=== PATIENT | female | born 1975 | race Caucasian/White ===

== ENCOUNTER 2018-07-24 22:23 | Emergency (ER) | payer OTHER ==
[2018-07-24 22:28] VITALS: RESP 18
[2018-07-24] MEDS ORDERED: ACETAMINOPHEN TAB 500 MG TAB PO STA (23:04)
[2018-07-24] MEDS ORDERED: IBUPROFEN 600 MG TAB PO STA (23:04)
--- NOTE | 2018-07-24 23:11 | ED ---
General Adult HPI - General Chief complaint: ENT Stated complaint: Throat/neck/back pain Time Seen by Provider: 07/24/18 22:44 Source: patient, RN notes reviewed Mode of arrival: ambulatory Limitations: no limitations - History of Present Illness Initial comments: Patient is a pleasant 42-year-old female presenting to the emergency department with fever chills and sore throat. Onset of symptoms was morning. Patient had minimal dry throat last night. Last medication was around 3 PM. Patient states her throat hurts. Patient has some nasal congestion. Patient states her ears ache. Patient also states she is having some minimal suprapubic discomfort and burning with urination. Symptoms have progressively worsened throughout the day. Patient does have fever or chills and myalgias. - Related Data Home Medications Medication Instructions Recorded Confirmed ALPRAZolam [Xanax] 0.5 mg PO DAILY PRN 07/24/18 07/24/18 Cholecalciferol (Vitamin D3) 4,000 unit PO DAILY 07/24/18 07/24/18 [Vitamin D3] Hydrochlorothiazide [Hydrodiuril] 25 mg PO DAILY 07/24/18 07/24/18 Lisinopril [Prinivil] 5 mg PO DAILY 07/24/18 07/24/18 Lovastatin [Mevacor] 10 mg PO DAILY 07/24/18 07/24/18 Multivitamins, Thera [Multivitamin 1 tab PO DAILY 07/24/18 07/24/18 (formulary)] Phentermine HCl [Adipex-P] 37.5 mg PO DAILY 07/24/18 07/24/18 Previous Rx's Medication Instructions Recorded Azithromycin [Zithromax Z-pack] 250 mg PO DIRECTED #6 tab 07/24/18 Ibuprofen [Motrin] 600 mg PO Q6HR PRN #20 tab 07/24/18 Allergies Allergy/AdvReac Type Severity Reaction Status Date / Time No Known Allergies Allergy Verified 07/24/18 22:47 Review of Systems ROS Statement: Those systems with pertinent positive or pertinent negative responses have been documented in the HPI. ROS Other: All systems not noted in ROS Statement are negative. Constitutional: Reports: fever, chills Eyes: Denies: eye pain ENT: Reports: ear pain, throat pain Respiratory: Denies: cough, dyspnea Cardiovascular: Denies: chest pain Endocrine: Reports: fatigue Gastrointestinal: Reports: as per HPI Genitourinary: Reports: dysuria Musculoskeletal: Denies: arthralgia Skin: Denies: rash Neurological: Denies: weakness Past Medical History Past Medical History: Renal Disease History of Any Multi-Drug Resistant Organisms: None Reported Past Surgical History: Ablation, Section Past Psychological History: No Psychological Hx Reported Smoking Status: Never smoker Past Alcohol Use History: None Reported Past Drug Use History: None Reported General Exam Limitations: no limitations General appearance: alert, in no apparent distress Head exam: Present: normocephalic Eye exam: Present: normal appearance ENT exam: Present: TM's normal bilaterally, other (Mild pharyngeal erythema. No tenderness over the sinuses.) Neck exam: Present: normal inspection. Absent: meningismus Respiratory exam: Present: normal lung sounds bilaterally Cardiovascular Exam: Present: regular rate, normal rhythm GI/Abdominal exam: Present: soft, tenderness (Minimal suprapubic tenderness). Absent: distended, guarding, rebound, rigid Extremities exam: Present: normal inspection Neurological exam: Present: alert Psychiatric exam: Present: normal affect, normal mood Skin exam: Present: normal color Course Vital Signs 07/24/18 22:25 Temperature 99.9 F H Pulse Rate 108 H Respiratory 18 Rate Blood Pressure 119/76 O2 Sat by Pulse 97 Oximetry Medical Decision Making - Medical Decision Making Patient reevaluated and updated. Patient is concern regarding sinus congestion and will be placed on antibiotics for sinusitis. - Lab Data Lab Results 07/24/18 07/24/18 07/24/18 Range/Units 23:14 23:14 23:14 Urine Color Colorless Urine Appearance Clear (Clear) Urine pH 8.0 (5.0-8.0) Ur Specific [place] 1.004 (1.001-1.035) Urine Protein Negative (Negative) Urine Glucose (UA) Negative (Negative) Urine Ketones Negative (Negative) Urine Blood Trace H (Negative) Urine Nitrite Negative (Negative) Urine Bilirubin Negative (Negative) Urine Urobilinogen <2.0 (<2.0) mg/dL Ur Leukocyte Esterase Negative (Negative) Urine RBC 1 (0-5) /hpf Urine WBC <1 (0-5) /hpf Ur Squamous Epith Cells 1 (0-4) /hpf Influenza Type A RNA Not Detected (Not Detectd) Influenza Type B (PCR) Not Detected (Not Detectd) Group A Strep Rapid Negative (Negative) Disposition Clinical Impression: Sinusitis, Pharyngitis Disposition: HOME SELF-CARE Condition: Stable Instructions (If sedation given, give patient instructions): Pharyngitis (ED), Sinusitis (ED) Additional Instructions: Continue Tylenol and Motrin as needed. Please follow-up with primary care physician in the next couple days for recheck. Return for difficulty breathing, unable to swallow, worsening symptoms or other concerns. Prescriptions: Ibuprofen [Motrin] 600 mg PO Q6HR PRN #20 tab PRN Reason: Pain Azithromycin [Zithromax Z-pack] 250 mg PO DIRECTED #6 tab Is patient prescribed a controlled substance at d/c from ED?: No Referrals: Addy Ghotra MD [Primary Care Provider] - 1-2 days Time of Disposition: 23:53
[2018-07-24 23:25] LABS: Appearance,Urine Clear (Clear); Bilirubin,Urine Negative (Negative); Blood,Urine Trace (Negative); Color,Urine Colorless; Glucose,Urine (UA) Negative (Negative); Ketones,Urine Negative (Negative); Leukocyte Esterase,Urine Negative (Negative); Nitrite,Urine Negative (Negative); Protein,Urine Negative (Negative); RBC,Urine 1 /hpf (0-5); Specific Gravity,Urine 1.004 (1.001-1.035); Squamous Epithelial Cell,Urine 1 /hpf (0-4); Urobilinogen,Urine <2.0 mg/dL (<2.0); WBC,Urine <1 /hpf (0-5)
[2018-07-25 00:04] VITALS: BP 138/78; PULSE 98; TEMP 98.9
== END 2018-07-25 00:04 | disposition home or self-care (01) ==
LOC: EC 22:23
DX: J32.9 Chronic sinusitis, unspecified (principal); R30.0 Dysuria; Z79.899 Other long term (current) drug therapy
CPT/HCPCS: 81001; 87081; 87086; 87430; 87502; 99283

== ENCOUNTER → 2018-12-12 | Outpatient (CLI) | payer OTHER ==
[2018-12-12 15:27] VITALS: BP 109/76; PULSE 77; RESP 16; TEMP 98; BMI 29.8
--- NOTE | 2018-12-12 16:01 | P.GSHP ---
History of Present Illness H&P Date: 12/12/18 Chief Complaint: right breast pain Sue is a 43-year-old white female who presents with a complaint of right breast pain. The pain has been persistent for approximately a year and a half. She initially had a bilateral mammogram which resulted in an ultrasound of the left breast which revealed an area for which biopsy was recommended and this was benign. No specific lesion was identified in the right breast. Her most recent bilateral mammogram was in September of 2018. Additional views of the right breast was recommended. These were performed [id number]. This revealed nodular density right breast less conspicuous 6 month follow-up recommended. This was a BIRADS 3 probable benign finding and short interval follow-up was recommended. The discomfort in the right breast has not stopped. The patient describes it as diffuse to the breast. At the time of her menstrual cycle it is recommended needle behind the nipple causing pain for several days. The pain is described as throbbing in nature. It is exacerbated by palpation. The patient did have a history of, at 9 years of age, and she states that her breast were developed at that time. She was shooting a [place] and arrow and the strings snapped and hit her breast. At that time she did not have any hematoma in the breast and it did not turn black and blue. She has had no other history of, to either breast. She has no history of any infections in the breast. She does state that the right breast has had persistent nipple discharge since her pregnancies. The discharge is milky or clear in nature and is not bloody. This has been going on for approximately 16 years. The left breast did have some di scharge for several years after her however this stopped. She drinks 1 1/2 coffee/day, she has cut down from up to 5 cups/day. She used to smoke 1PPD for 17 years and quite several years ago. She is exposed to second hand smoke. She does not eat chocolate regularly. She does not take any hormones. She does not use control pills. Family history: 1. maternal grandmother: breast cancer 2. maternal aunt breast cancer 3. maternal cousin: breast cancer Hormonal history: Menarche:13 [place], breast fed: no, age at first : 20 uterine ablation at 38 done for heavy bleeding, endometriosis no period since than BCP: shot 1 time at 21 hormones: none Surgical history: 1. Uterine ablation 2. D&C 3. 4. tubal-ligation Medical History: 1. 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 Endometriosis in the past 3. Kidney disease with high protein in the urine Social History: smoke: stopped 3 years ago alcohol: none drugs: none - Constitutional Constitutional: Denies chills, Denies fever - EENT Eyes: denies blurred vision, denies pain Ears: deny: decreased hearing, tinnitus Ears, nose, mouth and throat: Denies headache, Denies sore throat - Breasts Breasts: bilateral: as per HPI - Cardiovascular Cardiovascular: Reports high blood pressure - Respiratory Comment: former smoker Respiratory: Denies cough, Denies 7 - Gastrointestinal Gastrointestinal: Denies abdominal pain, Denies diarrhea, Denies nausea, Denies vomiting - Genitourinary (Female) Comment: Seen in the urine on certain as to the etiology, this is improved since the patient has been started on blood pressure medication - Menstruation Comment: Uterine ablation, no period since approximately 38, history of endometriosis - Musculoskeletal Comment: none - Integumentary Integumentary: Denies pruritus, Denies rash - Neurological Neurological: Denies numbness, Denies weakness - Psychiatric Psychiatric: Reports anxiety, Reports depression - Endocrine Comment: hypothyroid - Hematologic/Lymphatic Comment: none - Allergic/Immunologic Comment: none Past Medical History Past Medical History: Renal Disease History of Any Multi-Drug Resistant Organisms: None Reported Past Surgical History: Ablation, Section Past Psychological History: No Psychological Hx Reported Smoking Status: Never smoker Past Alcohol Use History: None Reported Past Drug Use History: None Reported Medications and Allergies Home Medications Medication Instructions Recorded Confirmed Type ALPRAZolam [Xanax] 0.5 mg PO DAILY PRN 07/24/18 07/24/18 History Cholecalciferol (Vitamin D3) 4,000 unit PO DAILY 07/24/18 07/24/18 History [Vitamin D3] Hydrochlorothiazide [Hydrodiuril] 25 mg PO DAILY 07/24/18 07/24/18 History Lisinopril [Prinivil] 5 mg PO DAILY 07/24/18 07/24/18 History Lovastatin [Mevacor] 10 mg PO DAILY 07/24/18 07/24/18 History Multivitamins, Thera [Multivitamin 1 tab PO DAILY 07/24/18 07/24/18 History (formulary)] Omeprazole 20 mg PO DAILY 12/12/18 12/12/18 History Allergies Allergy/AdvReac Type Severity Reaction Status Date / Time No Known Allergies Allergy Verified 12/12/18 15:27 Surgical - Exam Vital Signs Temp Pulse Resp BP Pulse Ox 98.0 F 77 16 109/76 98 12/12/18 15:15 12/12/18 15:15 12/12/18 15:15 12/12/18 15:15 12/12/18 15:15 BMI 29.8 - General well developed, well nourished, no distress - Eyes normal ocular movement - ENT no hearing loss, no congestion - Neck no masses, trachea midline - Respiratory normal respiratory effort, clear to auscultation - Cardiovascular Rhythm: regular Heart Sounds: normal: S1, S2 - Abdomen Abdomen: soft, non tender, no guarding, no rigid, no rebound - Integumentary normal turgor - Neurologic no disoriented, no combative - Musculoskeletal normal gait, normal posture - Psychiatric oriented to time, oriented to person, oriented to place, speech is normal, memory intact breast exam: right breast: Multi-positional exam fibrocystic breast changes, no dominant masses or nodules of concern, there is increased parenchyma at the 12 o'clock position which appears to be breast tissue, nipple is inverted but does come out Right axilla: No adenopathy of concern Left breast: Multi-positional exam fibrocystic breast changes, no dominant masses or nodules of concern Left axilla: No adenopathy of concern The right breast is larger than the left breast Results Mammogram and ultrasound results reviewed Assessment and Plan Assessment: Impression: 1. Right breast pain 2. Remote history of trauma to right breast 3. Asymmetry of right breast larger than left breast 4. Right nipple inverted left nipple erect 5. Family history of breast cancer 6. Anxiety 7. Uterine ablation with no longer having periods/endometriosis in the past 8. Hypertension/renal disease 9. Former smoker I believe the breast pain is most likely multifactorial. It appears to be cyclical in nature and therefore is probably some hormone dependent. The reason for the pain being greater than the right side may be related to the fact that she has a remote history of trauma to that breast. Additionally she has asymmetry of the breast with the right breast being larger than the left breast. She also has nipple discharge on the right this again may be related to ductal ectasia or prior history of trauma to that side at today's examination did not elicit any discharge. The patient drinks minimal caffeine she does not smoke and is not exposed to large quantities of secondhand smoke. She does not eat large quantities of chocolate. I'm going to provide her with a book on breast pain and suggest that she stop caffeine intake and has [place] oil. Plan: 1. [place] oil 2. Stop caffeine 3. Limited exposure to secondhand smoke 4. Nonsteroidal anti-inflammatories as needed for breast pain 5. Bilateral mammogram in February with physician exam at that time CC: Dr. Ghotra
== END ==
LOC: WWCWWP 15:03
PROVIDERS: ATTEND Surgery
DX: Z53.9 Procedure and treatment not carried out, unspecified reason (principal)

== ENCOUNTER 2019-05-05 22:02 | Emergency (ER) | payer OTHER ==
[2019-05-05 22:17] VITALS: TEMP 98
--- NOTE | 2019-05-05 22:45 | XR ---
EXAMINATION TYPE: XR chest 2V DATE OF EXAM: 05/05/2019 COMPARISON: 05/04/2016 HISTORY: Short of breath TECHNIQUE: FINDINGS: Heart and mediastinum are normal. Lungs are clear. Diaphragm is normal. Bony thorax appears normal. IMPRESSION: Normal chest. No change.
[2019-05-06] MEDS ORDERED: OSELTAMIVIR 75 MG CAP PO STA (00:33)
--- NOTE | 2019-05-06 00:37 | ED ---
URI HPI - General Chief Complaint: Upper Respiratory Infection Stated Complaint: Weakness,Cough Time Seen by Provider: 05/06/19 00:20 Source: patient, RN notes reviewed Mode of arrival: ambulatory Limitations: no limitations - History of Present Illness Initial Comments: This a 43-year-old female with a history of renal disease who is a nonsmoker who states she had the onset 2 and 3 days ago of fevers chills cough rhinorrhea sore throat to his body aches and is generally not feeling well. He came in today because of that she's missed last couple days work. MD Complaint: fever, cough, sore throat, rhinorrhea, nasal congestion - Related Data Home Medications Medication Instructions Recorded Confirmed ALPRAZolam [Xanax] 0.5 mg PO DAILY PRN 07/24/18 07/24/18 Cholecalciferol (Vitamin D3) 4,000 unit PO DAILY 07/24/18 12/12/18 [Vitamin D3] Hydrochlorothiazide [Hydrodiuril] 25 mg PO DAILY 07/24/18 12/12/18 Lisinopril [Prinivil] 5 mg PO DAILY 07/24/18 12/12/18 Lovastatin [Mevacor] 10 mg PO DAILY 07/24/18 12/12/18 Multivitamins, Thera [Multivitamin 1 tab PO DAILY 07/24/18 12/12/18 (formulary)] Omeprazole 20 mg PO DAILY 12/12/18 12/12/18 Previous Rx's Medication Instructions Recorded Oseltamivir [Tamiflu] 75 mg PO Q12HR #10 cap 05/06/19 Allergies Allergy/AdvReac Type Severity Reaction Status Date / Time NSAIDS (Non-Steroidal AdvReac due to Verified 05/05/19 22:17 Anti-Inflamma kidney disease Review of Systems ROS Statement: Those systems with pertinent positive or pertinent negative responses have been documented in the HPI. ROS Other: All systems not noted in ROS Statement are negative. Past Medical History Past Medical History: Renal Disease History of Any Multi-Drug Resistant Organisms: None Reported Past Surgical History: Section, Uterine Ablation Past Psychological History: No Psychological Hx Reported Smoking Status: Never smoker Past Alcohol Use History: None Reported Past Drug Use History: None Reported General Exam - General Exam Comments Initial Comments: This is a well-developed well-nourished awake alert oriented 3 female Limitations: no limitations General appearance: alert, in no apparent distress Head exam: Present: atraumatic, normocephalic, normal inspection Eye exam: Present: normal appearance, PERRL, EOMI. Absent: scleral icterus, conjunctival injection, periorbital swelling ENT exam: Present: mucous membranes moist, other (Boggy swollen nasal mucosa with posterior pharyngeal erythema no exudate seen) Neck exam: Present: normal inspection. Absent: tenderness, meningismus, lymphadenopathy Respiratory exam: Present: normal lung sounds bilaterally. Absent: respiratory distress, wheezes, rales, rhonchi, stridor Cardiovascular Exam: Present: regular rate, normal rhythm, normal heart sounds. Absent: systolic murmur, diastolic murmur, rubs, gallop, clicks GI/Abdominal exam: Present: soft, normal bowel sounds. Absent: distended, tenderness, guarding, rebound, rigid Extremities exam: Present: normal inspection, full ROM, normal capillary refill. Absent: tenderness, pedal edema, joint swelling, calf tenderness Back exam: Present: normal inspection Neurological exam: Present: alert, oriented X3, CN II-XII intact Psychiatric exam: Present: normal affect, normal mood Skin exam: Present: warm, dry, intact, normal color. Absent: rash Course Vital Signs 05/05/19 22:13 Temperature 98.0 F Pulse Rate 89 Respiratory 20 Rate Blood Pressure 118/81 O2 Sat by Pulse 100 Oximetry Medical Decision Making - Medical Decision Making I did discuss findings the patient and family member that was present. Patient does have evidence of type a influenza. She will be placed on antivirals she will be given a note for work for tonight and tomorrow night she will perform simple any care with fluids and Tylenol she has problems with ibuprofen due to kidney issues. She will stay away from ibuprofen and NSAIDs. - Lab Data Lab Results 05/05/19 Range/Units 22:20 Influenza Type A RNA Detected H (Not Detectd) Influenza Type B (PCR) Not Detected (Not Detectd) - Radiology Data Radiology results: report reviewed (I did review the imaging and report no acute findings.), image reviewed Disposition Clinical Impression: Influenza, Viral infection Disposition: HOME SELF-CARE Condition: Good Instructions (If sedation given, give patient instructions): Influenza (ED) Additional Instructions: Prescription sent to your [facility] preferred pharmacy Prescriptions: Oseltamivir [Tamiflu] 75 mg PO Q12HR #10 cap Is patient prescribed a controlled substance at d/c from ED?: No Referrals: Addy Ghotra MD [Primary Care Provider] - 1-2 days
[2019-05-06 00:53] VITALS: BP 137/100; PULSE 88; RESP 18
== END 2019-05-06 00:51 | disposition home or self-care (01) ==
LOC: EC 22:02
DX: J11.1 Influenza due to unidentified influenza virus with other respiratory manifestations (principal); B34.9 Viral infection, unspecified; N28.9 Disorder of kidney and ureter, unspecified; Z79.899 Other long term (current) drug therapy; Z88.6 Allergy status to analgesic agent
CPT/HCPCS: 71046; 87502; 99283

== ENCOUNTER 2020-01-24 17:52 | Emergency (ER) | payer OTHER ==
[2020-01-24 17:57] VITALS: TEMP 98.7
--- NOTE | 2020-01-24 18:13 | ED ---
Chest Pain HPI - General Chief Complaint: Chest Pain Stated Complaint: Chest Pain Time Seen by Provider: 01/24/20 18:08 Source: patient, RN notes reviewed, old records reviewed Mode of arrival: wheelchair Limitations: no limitations - History of Present Illness Initial Comments: This is a 44-year-old female DF she presents today for evaluation regards to chest pain. No chest pain substernal some posterior back sometimes her right side. History of anxiety taking anxiety medication with no help again symptoms are episodic but worsening she is not worse when she drinks no worse with exertion maybe worse when she lays down MD Complaint: chest pain -: days(s) Onset: during rest Pain Location: substernal Pain Radiation: none Severity: moderate Severity scale (1-10): 5 Quality: tightness Consistency: constant Improves With: nothing Worsens With: nothing Context: recent illness Anginal Symptoms: nausea Other Symptoms: palpitations Treatments Prior to Arrival: none - Related Data Home Medications Medication Instructions Recorded Confirmed ALPRAZolam [Xanax] 0.5 mg PO DAILY PRN 07/24/18 07/24/18 Cholecalciferol (Vitamin D3) 4,000 unit PO DAILY 07/24/18 12/12/18 [Vitamin D3] Lovastatin [Mevacor] 10 mg PO DAILY 07/24/18 12/12/18 Multivitamins, Thera [Multivitamin 1 tab PO DAILY 07/24/18 12/12/18 (formulary)] hydroCHLOROthiazide [Hydrodiuril] 25 mg PO DAILY 07/24/18 12/12/18 lisinopriL [Prinivil] 5 mg PO DAILY 07/24/18 12/12/18 Omeprazole 20 mg PO DAILY 12/12/18 12/12/18 Previous Rx's Medication Instructions Recorded Oseltamivir [Tamiflu] 75 mg PO Q12HR #10 cap 05/06/19 Allergies Allergy/AdvReac Type Severity Reaction Status Date / Time NSAIDS (Non-Steroidal AdvReac due to Verified 01/24/20 17:57 Anti-Inflamma kidney disease Review of Systems ROS Statement: Those systems with pertinent positive or pertinent negative responses have been documented in the HPI. ROS Other: All systems not noted in ROS Statement are negative. EKG Findings - EKG Comments: EKG Findings:: EKG is sinus on rhythm 81 GA 160 QRS 82 QTC 4:30 Past Medical History Past Medical History: Renal Disease History of Any Multi-Drug Resistant Organisms: None Reported Past Surgical History: Section, Uterine Ablation Past Psychological History: No Psychological Hx Reported Smoking Status: Never smoker Past Alcohol Use History: None Reported Past Drug Use History: None Reported General Exam Limitations: no limitations General appearance: alert, in no apparent distress Head exam: Present: atraumatic, normocephalic, normal inspection Eye exam: Present: normal appearance, PERRL, EOMI. Absent: scleral icterus, conjunctival injection, periorbital swelling ENT exam: Present: normal exam, mucous membranes moist Neck exam: Present: normal inspection. Absent: tenderness, meningismus, lymphadenopathy Respiratory exam: Present: normal lung sounds bilaterally. Absent: respiratory distress, wheezes, rales, rhonchi, stridor Cardiovascular Exam: Present: regular rate, normal rhythm, normal heart sounds. Absent: systolic murmur, diastolic murmur, rubs, gallop, clicks GI/Abdominal exam: Present: soft, normal bowel sounds. Absent: distended, tenderness, guarding, rebound, rigid Extremities exam: Present: normal inspection, full ROM, normal capillary refill. Absent: tenderness, pedal edema, joint swelling, calf tenderness Back exam: Present: normal inspection Neurological exam: Present: alert, oriented X3, CN II-XII intact Psychiatric exam: Present: normal affect, normal mood Skin exam: Present: warm, dry, intact, normal color. Absent: rash Course Vital Signs 01/24/20 17:54 Temperature 98.7 F Pulse Rate 94 Respiratory 18 Rate Blood Pressure 148/106 O2 Sat by Pulse 99 Oximetry - Reevaluation(s) Reevaluation #1: 01/24/20 20:56 Medical record is reviewed Reevaluation #2: 01/24/20 20:56 Patient has episodic recurrent chest pain still here in the ER Reevaluation #3: 01/24/20 20:56 Spoke patient regarding findings, questions answered, okay for discharge Reevaluation #4: Studies CT chest negative for PE Chest Pain MDM - MDM 4 female DF for chest pain. No acute cause for chest pain found here in the ER, patient can be discharged home Disposition Clinical Impression: Chest pain Disposition: HOME SELF-CARE Instructions (If sedation given, give patient instructions): Costochondritis (ED), Chest Pain (ED) Is patient prescribed a controlled substance at d/c from ED?: No Referrals: Addy Ghotra MD [Primary Care Provider] - 1-2 days
--- NOTE | 2020-01-24 18:31 | XR ---
EXAMINATION TYPE: XR chest 2V DATE OF EXAM: 01/24/2020 COMPARISON: 05/05/2019 HISTORY: Chest pain TECHNIQUE: FINDINGS: Heart and mediastinum are normal. Lungs are clear. Diaphragm is normal. Bony thorax appears normal. IMPRESSION: Normal chest. No change.
[2020-01-24 18:52] LABS: ALT 21 U/L (4-34); AST 25 U/L (14-36); African American GFR (CKD) >90 (>60 ml/min/1.73 sqM); Albumin 4.3 g/dL (3.5-5.0); Alkaline Phosphatase 42 U/L (38-126); Anion Gap 7 mmol/L; Blood Urea Nitrogen 10 mg/dL (7-17); Calcium 9.6 mg/dL (8.4-10.2); Carbon Dioxide 26 mmol/L (22-30); Chloride 102 mmol/L (98-107); Creatine Kinase 67 U/L (30-135); Glucose 101 mg/dL (74-99); Lipase 99 U/L (23-300); Magnesium 1.9 mg/dL (1.6-2.3); Non-African American GFR(CKD) >90 (>60 ml/min/1.73 sqM); Potassium 3.6 mmol/L (3.5-5.1); Sodium 135 mmol/L (137-145); Total Bilirubin 0.5 mg/dL (0.2-1.3); Total Protein 6.9 g/dL (6.3-8.2)
[2020-01-24 19:00] LABS: INR 0.9 (<1.2); Partial Thromboplastin Time 23.8 sec (22.0-30.0); Prothrombin Time 9.8 sec (9.0-12.0)
[2020-01-24 19:08] LABS: Basophils % (A) 1 %; Eosinophils # (A) 0.1 k/uL (0-0.7); Eosinophils % (A) 1 %; HCT 47.2 % (34.0-46.0); HGB 15.5 gm/dL (11.4-16.0); Lymphocytes # (A) 1.7 k/uL (1.0-4.8); Lymphocytes % (A) 21 %; MCH 30.4 pg (25.0-35.0); MCHC 32.9 g/dL (31.0-37.0); MCV 92.3 fL (80.0-100.0); Mean Platelet Volume 9.3; Monocytes # (A) 0.4 k/uL (0-1.0); Monocytes % (A) 6 %; Neutrophils # (A) 5.7 k/uL (1.3-7.7); Neutrophils % (A) 70 %; Platelet Count 289 k/uL (150-450); RBC 5.12 m/uL (3.80-5.40); RDW 12.3 % (11.5-15.5); WBC 8.1 k/uL (3.8-10.6)
[2020-01-24] MEDS ORDERED: KETOROLAC 15 MG/ML 1 ML VIAL IVP STA (19:55)
[2020-01-24] MEDS ORDERED: SODIUM CHLORIDE 0.9% 1,000 ML IV STA (19:55)
--- NOTE | 2020-01-24 20:48 | CT ---
EXAMINATION TYPE: CT angio chest DATE OF EXAM: 01/24/2020 COMPARISON: None HISTORY: Chest pain. No known cardiac hx. CT DLP: 339.5 mGycm Automated exposure control for dose reduction was used. CONTRAST: Performed with IV Contrast, patient injected with 100 mL of Isovue 370. There are 3-D post processed images. The lungs are clear of infiltrate. There is no evidence of a pulmonary mass. There is no pleural effu melba or pneumothorax. Heart size is normal. There is no pericardial effusion. There is no mediastinal adenopathy. There are no hilar masses. The bony thorax is intact. There is normal contrast opacification of the pulmonary arteries. There are no filling defects. Thora cic aorta is intact. There is no aneurysm or dissection. IMPRESSION: Normal exam. No evidence of pulmonary embolism.
[2020-01-24 21:20] VITALS: BP 126/102; PULSE 83; RESP 16
== END 2020-01-24 21:20 | disposition home or self-care (01) ==
LOC: EC 17:52
DX: R07.9 Chest pain, unspecified (principal); R11.0 Nausea; R00.2 Palpitations; Z79.899 Other long term (current) drug therapy; Z88.6 Allergy status to analgesic agent
CPT/HCPCS: 36415; 93005; 83880; 80053; 82550; 83690; 83735; 84484; 85025; 85610; 85730; 71046; 71275; 99285; Q9967

== ENCOUNTER 2020-06-06 06:02 | Day surgery (SDC) | payer OTHER ==
[2020-06-03 08:32] VITALS: BMI 30.2
--- NOTE | 2020-06-05 17:46 | P.HPOB ---
History of Present Illness H&P Date: 06/05/20 Chief Complaint: ALON II This is a 44 y.o. 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 Her pap smear on 03/24/2020 showed low grade squamous intraepithelial lesion with + high risk HPV. In light of the ALON II, she has consented to the above procedure. She has no previous history of abnormal pap smears. OB Hx: . History of 1 , 2 vaginal births, and 1 miscarriage. 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 She has no current partner. Had a tubal ligation for control. 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 Review of Systems Constitutional: Denies chills, Denies fever Eyes: denies blurred vision, denies pain Ears, nose, mouth and throat: Denies headache, Denies sore throat Cardiovascular: Denies chest pain, Denies shortness of breath Respiratory: Denies cough Gastrointestinal: Denies abdominal pain, Denies diarrhea, Denies nausea, Denies vomiting Genitourinary: Reports dysmenorrhea, Denies dysuria, Denies hematuria Menstruation: Reports amenorrhea Musculoskeletal: Reports low back pain, Denies myalgias Integumentary: Denies pruritus, Denies rash Neurological: Denies numbness, Denies weakness Psychiatric: Reports anxiety Past Medical History Past Medical History: Hyperlipidemia, Hypertension, Renal Disease, Thyroid Disorder Additional Past Medical History / Comment(s): Hx "elevated protein in urine 10 yrs ago". History of Any Multi-Drug Resistant Organisms: None Reported Past Surgical History: Section, Uterine Ablation Additional Past Surgical History / Comment(s): D&C. Past Anesthesia/Blood Transfusion Reactions: No Reported Reaction Past Psychological History: No Psychological Hx Reported Smoking Status: Never smoker Past Alcohol Use History: Rare Additional Past Alcohol Use History / Comment(s): Quit smoking 2 yrs ago, smoked for 10+ yrs 1PPD. Past Drug Use History: None Reported - Past Family History Mother Family Medical History: No Reported History Medications and Allergies Home Medications Medication Instructions Recorded Confirmed Type ALPRAZolam [Xanax] 0.5 mg PO DAILY PRN 07/24/18 06/06/20 History Cholecalciferol (Vitamin D3) 4,000 unit PO DAILY 07/24/18 06/03/20 History [Vitamin D3] Lovastatin [Mevacor] 10 mg PO DAILY 07/24/18 06/06/20 History Multivitamins, Thera [Multivitamin 1 tab PO DAILY 07/24/18 06/03/20 History (formulary)] hydroCHLOROthiazide [Hydrodiuril] 25 mg PO DAILY 07/24/18 06/06/20 History lisinopriL [Prinivil] 5 mg PO HS 07/24/18 06/06/20 History RX: Levothyroxine Sodium 125 mcg PO QAM 06/03/20 06/06/20 History Allergies Allergy/AdvReac Type Severity Reaction Status Date / Time NSAIDS (Non-Steroidal AdvReac due to Verified 06/06/20 06:23 Anti-Inflamma kidney disease Exam Osteopathic Statement: *. No significant issues noted on an osteopathic structural exam other than those noted in the History and Physical/Consult. HEENT: within normal limits Heart: regular rate and rhythm Lungs: clear to auscultation bilaterally Abdomen: soft, non-tender Pelvic: uterus anteverted, non-tender, no adnexal masses or tenderness Extremities: neg. Laura's. Assessment and Plan (1) ALON II (cervical intraepithelial neoplasia II) Current Visit: No Status: Acute Code(s): N87.1 - MODERATE CERVICAL DYSPLASIA SNOMED Code(s): 453578460 Plan: Proceed with colposcopy with loop electrocautery excision procedure. I have discussed the risks, benefits, and alternative therapies for the above- mentioned procedure and for both sedation/anesthesia as well as necessary blood products administration, if indicated, as they pertain to this patient. The patient has indicated her understanding and acceptance of the risks and procedures discussed.
[~2020-06-06 06:02] MED LIST: DEXAMETHASONE SOD PHOSPHATE 4 MG/ML 1 ML VIAL IV ONE; HYDROmorphone 0.5 MG/0.5 ML SYRINGE IVP PRN; LACTATED RINGERS 1,000 ML IV SCH; ONDANSETRON 4 MG/2 ML VIAL IVP ONE; Pre Op ABX Message 1 EACH MISC MISCELLANE ONE
[2020-06-06] MEDS ORDERED: LIDOCAINE 1% (10MG/ML) FOR IV START INTRADERMA ONE (06:38)
[2020-06-06] MEDS ORDERED: MIDAZOLAM 2 MG/2 ML VIAL IV ONE (06:50)
[2020-06-06] MEDS ORDERED: LIDOCAINE 1% INJ 10MG/ML (20 ML MDV) ONE (07:09)
[2020-06-06] MEDS ORDERED: fentaNYL (PF) 50 MCG/ML 2 ML AMP ONE (07:09)
[2020-06-06] MEDS ORDERED: PROPOFOL 10 MG/ML 20 ML VIAL IV ONE (07:09)
[2020-06-06] MEDS ORDERED: MIDAZOLAM 2 MG/2 ML VIAL ONE (07:09)
[2020-06-06] MEDS ORDERED: IODINE/POTASS IOD (LUGOLS) BOTTLE TOPICAL ONE (07:36)
[2020-06-06] MEDS ORDERED: FERRIC SUBSULFATE (MONSELS) JAR TOPICAL ONE ×2 (07:36→07:47)
[2020-06-06] MEDS ORDERED: ACETIC ACID 15 DROPS/ML DROPS MISCELLANE ONE (07:36)
[2020-06-06] MEDS ORDERED: BUPIVACAINE (PF) 0.5% 30 ML VIAL MISCELLANE ONE (07:41)
[2020-06-06] MEDS ORDERED: LIDOCAINE 1%-EPI 1:100,000 20 ML VIAL SUBMUCOSAL ONE (07:41)
--- NOTE | 2020-06-06 07:50 | P.OP ---
Date of Procedure: 06/06/20 Preoperative Diagnosis: ALON-2 Postoperative Diagnosis: Cervical dysplasia pending pathology Procedure(s) Performed: Colposcopy with loop electrocautery excision procedure Anesthesia: other (Mask general) Surgeon: Mikaela Doherty Estimated Blood Loss (ml): 10 Condition: stable Disposition: same day Indications for Procedure: This is a 44 y.o. 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 Her pap smear on 03/24/2020 showed low grade squamous intraepithelial lesion with + high risk HPV. In light of the ALON II, she has consented to the above procedure. She has no previous history of abnormal pap smears. Operative Findings: Cervix is completely visualized. On colposcopy, acetowhite and Lugol white areas are seen at the 12:00 border. There is some mosaicism seen at 10 to 12:00 area. Description of Procedure: The patient is taken to the operating room where she is placed in the dorsal lithotomy position. She was prepped and draped in the normal sterile fashion. Her bladder is drained with a catheter. A coated bivalve speculum was placed in the patient's vagina. The cervix is completely visualized. Cervix is then viewed with a colposcope with a blue light. Cervix is swabbed with 5% acetic acid solution. The above-noted findings are made. Next the cervix was swabbed with Lugol solution. The above-noted findings are made. Next the cervix is circumferentially injected with a 50-50 mixture of 1% lidocaine with epinephrine and half percent Marcaine. Approximately 7 mL were injected using a spinal needle circumferentially around the cervix. Next a large loop was used with 35 W of cutting power to swipe from left to right to remove the entire transition zone. Next a ball-tipped cautery was used to cauterize the bed left behind. The specimen was labeled at the 12 o'clock position with a stitch. Monsel solution was applied to the bed left behind. Hemostasis was noted. All instruments are removed from the vagina. All sponge and needle counts are correct. The patient then taken to recovery room in stable condition.
[2020-06-06 08:29] VITALS: TEMP 97.3
[2020-06-06 08:31] VITALS: RESP 16
[2020-06-06] MEDS ORDERED: IBUPROFEN 200 MG TAB PO ONE (09:09)
[2020-06-06 09:27] VITALS: BP 122/83; PULSE 79
== END 2020-06-06 10:01 | disposition home or self-care (01) ==
LOC: OR 06:02
PROVIDERS: ATTEND Obstetrics & Gynecology
DX: N87.1 Moderate cervical dysplasia (principal); E78.5 Hyperlipidemia, unspecified; E07.9 Disorder of thyroid, unspecified; I10 Essential (primary) hypertension; N28.9 Disorder of kidney and ureter, unspecified; F41.9 Anxiety disorder, unspecified; Z79.890 Hormone replacement therapy; Z79.899 Other long term (current) drug therapy; Z87.891 Personal history of nicotine dependence
CPT/HCPCS: 57460; 81025; 88342; 88307; J2250; J1100; J2405; J2001; J3010; J2704

== ENCOUNTER 2021-03-20 07:30 | Inpatient (IN) | payer OTHER ==
[2021-04-14 12:11] VITALS: BMI 33.0
--- NOTE | 2021-04-19 16:36 | P.HPOB ---
History of Present Illness H&P Date: 04/19/21 Chief Complaint: Pelvic pain, ASCUS This is a 45 y.o. female, 4, para 3, who presents for total abdominal hysterectomy with bilateral salpingectomy, possible oophorectomy due to persistent pelvic pain despite endometrial ablation. She has crampy pelvic pain that comes every 2-3 weeks and lasts for 5 days going on for about a year now. The pain is in her lower abdomen and radiates to her lower back and is associated with breast tenderness. In addition, she did have a LEEP procedure done in 05/2020 for HGSIL and it showed no residual. Her last pap smear in 01/2021 showed ASCUS with negative high risk HPV. The patient would like definitive surgical treatment for her pain and has requested hysterectomy. We will only remove ovaries if they appear severely diseased. She had a pelvic ultrasound on 03/17/2021 that showed uterus measuring 6.3 x 4.4 x 3.4 cm with an endometrial thickness of 15 mm and small corpus luteum cysts on both ovaries. OB Hx: . History of 1 and 2VBACs, 1 miscarriage. 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 No other history of STDs. Has had a tubal ligation. 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 Review of Systems Constitutional: Denies chills, Denies fever Eyes: denies blurred vision, denies pain Ears, nose, mouth and throat: Denies headache, Denies sore throat Cardiovascular: Denies chest pain, Denies shortness of breath Respiratory: Denies cough Gastrointestinal: Denies abdominal pain, Denies diarrhea, Denies nausea, Denies vomiting Genitourinary: Reports dysmenorrhea, Reports pelvic pain Menstruation: Reports amenorrhea (ablation) Musculoskeletal: Reports low back pain Integumentary: Denies pruritus, Denies rash Neurological: Denies numbness, Denies weakness Psychiatric: Reports anxiety Endocrine: Reports fatigue Past Medical History Past Medical History: GERD/Reflux, Hyperlipidemia, Hypertension, Renal Disease, Thyroid Disorder Additional Past Medical History / Comment(s): Hx "elevated protein in urine 2009, History of Any Multi-Drug Resistant Organisms: None Reported Past Surgical History: Section, Uterine Ablation Additional Past Surgical History / Comment(s): D&C. LEEP/Colposcopy 05/2020. Past Anesthesia/Blood Transfusion Reactions: No Reported Reaction Past Psychological History: Anxiety Smoking Status: Former smoker Past Alcohol Use History: Occasional Past Drug Use History: None Reported - Past Family History Mother Family Medical History: No Reported History Father Family Medical History: Diabetes Mellitus, Hyperlipidemia Medications and Allergies Home Medications Medication Instructions Recorded Confirmed Type ALPRAZolam [Xanax] 0.5 mg PO DAILY PRN 07/24/18 04/20/21 History Cholecalciferol (Vitamin D3) 4,000 unit PO DAILY 07/24/18 04/20/21 History [Vitamin D3] Lovastatin [Mevacor] 10 mg PO DAILY 07/24/18 04/20/21 History Multivitamins, Thera [Multivitamin 1 tab PO DAILY 07/24/18 04/20/21 History (formulary)] hydroCHLOROthiazide [Hydrodiuril] 25 mg PO DAILY 07/24/18 04/20/21 History lisinopriL [Prinivil] 5 mg PO 1900 07/24/18 04/20/21 History Levothyroxine Sodium 125 mcg PO QAM 06/03/20 04/20/21 History Evening [place] Oil 1,000 mg PO DAILY 04/14/21 04/20/21 History Allergies Allergy/AdvReac Type Severity Reaction Status Date / Time NSAIDS (Non-Steroidal AdvReac due to Verified 04/20/21 06:39 Anti-Inflamma kidney disease Exam Osteopathic Statement: *. No significant issues noted on an osteopathic structural exam other than those noted in the History and Physical/Consult. HEENT: within normal limits Heart: regular rate and rhythm Lungs: clear to auscultation bilaterally Abdomen: soft, non-tender Uterus: small, anteverted, mildly tender, no adnexal masses but mildly tender bilaterally Extremities: neg. Laura's Assessment and Plan (1) Pelvic pain Current Visit: No Status: Acute Code(s): R10.2 - PELVIC AND PERINEAL PAIN SNOMED Code(s): 15904861 (2) ASCUS favor benign Current Visit: No Status: Acute Code(s): PYH8338 - SNOMED Code(s): 845002809 Plan: Proceed with total abdominal hysterectomy with bilateral salpingectomy, possible oophorectomy. I have discussed the risks, benefits, and alternative therapies for the above- mentioned procedure and for both sedation/anesthesia as well as necessary blood products administration, if indicated, as they pertain to this patient. The patient has indicated her understanding and acceptance of the risks and procedures discussed.
[2021-04-20] MEDS ORDERED: DEXAMETHASONE SOD PHOSPHATE 4 MG/ML 1 ML VIAL IV ONE (06:04)
[2021-04-20] MEDS ORDERED: ONDANSETRON 4 MG/2 ML VIAL IVP ONE (06:04)
[2021-04-20] MEDS ORDERED: MIDAZOLAM 2 MG/2 ML VIAL IV PRN (06:04)
[2021-04-20] MEDS ORDERED: LIDOCAINE 1% (10MG/ML) FOR IV START INTRADERMA ONE (06:56)
[2021-04-20] MEDS: LACTATED RINGERS 1,000 ML IV SCH ×2 (06:57→23:44)
[2021-04-20] MEDS ORDERED: MIDAZOLAM 2 MG/2 ML VIAL IVP ONE (07:11)
[2021-04-20] MEDS ORDERED: NEOSTIGMINE 1 MG/ML 10 ML VIAL ONE (07:55)
[2021-04-20] MEDS ORDERED: PROPOFOL 10 MG/ML 20 ML VIAL IV ONE (07:55)
[2021-04-20] MEDS ORDERED: KETOROLAC 15 MG/ML 1 ML VIAL ONE (07:55)
[2021-04-20] MEDS ORDERED: LIDOCAINE 1% INJ 10MG/ML (20 ML MDV) ONE (07:55)
[2021-04-20] MEDS ORDERED: HYDROmorphone (PF) 1 MG/ML ONE (07:55)
[2021-04-20] MEDS ORDERED: GLYCOPYRROLATE 0.2 MG/ML 2 ML VIAL ONE (07:55)
[2021-04-20] MEDS ORDERED: fentaNYL (PF) 50 MCG/ML 2 ML AMP ONE (07:55)
[2021-04-20] MEDS ORDERED: MIDAZOLAM 2 MG/2 ML VIAL ONE (07:55)
[2021-04-20] MEDS ORDERED: MORPHINE SULFATE (PF) 0.3 MG/0.3 ML SYR ONE (07:55)
[2021-04-20] MEDS ORDERED: ROCURONIUM 10 MG/ML (5 ML VIAL) IV ONE (07:55)
[2021-04-20] MEDS ORDERED: SUCCINYLCHOLINE CHLORIDE 100 MG/5 ML SYR IV ONE (07:55)
--- NOTE | 2021-04-20 08:04 | P.ANPRN ---
Procedure Note - Anesthesia - Epidural/Spinal Spinal Date of Procedure: 04/20/21 Procedure Start Time: 06:52 Procedure Stop Time: 07:02 Location of Patient: PreOp Indication: Analgesia, Requested by Surgeon Sedation Type: Sedate with meaningful contact maintained Preparation: Sterile Prep Position: Sitting Needle Guage: 25 Injectate: Other Narrative: Duramorph 0.3 mg, plus Fentanyl 15 mcg Blood Aspirated: No Pain Paresthesia on Injection Noted: No Events: Uneventful and Well Tolerated
[2021-04-20] MEDS ORDERED: LACTATED RINGERS 1,000 ML IV ONE (08:40)
--- NOTE | 2021-04-20 09:14 | P.OP ---
Date of Procedure: 04/20/21 Preoperative Diagnosis: Pelvic pain Atypical squamous cells of undetermined significance on Pap Postoperative Diagnosis: Same Procedure(s) Performed: Total abdominal hysterectomy with bilateral salpingectomy Anesthesia: GETA, spinal (Duramorph) Surgeon: Mikaela Doherty Press Breaker #1: Amador Infante Estimated Blood Loss (ml): 75 Pathology: other (Uterus with cervix, bilateral fallopian tubes) Condition: stable Disposition: floor Indications for Procedure: This is a 45 y.o. female, 4, para 3, who presents for total abdominal hysterectomy with bilateral salpingectomy, possible oophorectomy due to persistent pelvic pain despite endometrial ablation. She has crampy pelvic pain that comes every 2-3 weeks and lasts for 5 days going on for about a year now. The pain is in her lower abdomen and radiates to her lower back and is associated with breast tenderness. In addition, she did have a LEEP procedure done in 05/2020 for HGSIL and it showed no residual. Her last pap smear in 01/2021 showed ASCUS with negative high risk HPV. The patient would like definitive surgical treatment for her pain and has requested hysterectomy. We will only remove ovaries if they appear severely diseased. She had a pelvic ultrasound on 03/17/2021 that showed uterus measuring 6.3 x 4.4 x 3.4 cm with an endometrial thickness of 15 mm and small corpus luteum cysts on both ovaries. Operative Findings: Uterus is small. Evidence of bilateral tubal ligation as noted on bilateral tubes. There was some adhesion of the left fallopian tube to the anterior abdominal wall. There was also adhesions of omentum to the anterior abdominal wall. Both ovaries did have small hemorrhagic cysts noted. Description of Procedure: The patient is taken to the operating room where she is placed in the dorsal supine position. She is prepped and draped in the normal sterile fashion including Espinosa catheter insertion and vaginal prep. A Pfannenstiel skin incision is made through the previous laparotomy scar with a scalpel. A second knife was used to carry the incision down to the underlying layer of fascia. The fascia was nicked in the midline with a scalpel and then extended laterally bilaterally with Terrell scissors. The superior aspect of the fascial incision was grasped with Lazaro clamps, elevated off the underlying rectus muscle in the midline and then cut with Terrell scissors. The inferior aspect of the fascial incision was grasped with Lazaro clamps, elevated off the underlying rectus muscle in the midline and then cut with Terrell scissors. Omentum was noted to be adherent to the anterior abdominal wall. The peritoneum was entered while taking the muscle down off of the fascia. The peritoneum is extended superiorly and in fairly with Metzenbaum scissors with good visualization of underlying structures. There are some omental adhesions that are taken down with Bovie cautery. Next the [place] retractor is placed in the bladder blade was inserted. The bowels were packed with a 3 yard laparotomy sponge. Next the uterus is brought up incision and the corneal regions are grasped with Estella clamps on both sides. Next the fallopian tube on the left side is released from the anterior abdominal wall with Metzenbaum scissors and then is brought up to the incision and the mesosalpinx is clamped with a Jenni clamp. This is cut with Terrell scissors and then sutured with 0 Vicryl suture in Jenni transfixion stitch. The remaining mesosalpinx is also clamped with a Jenni clamp, cut with Terrell scissors, and sutured with 0 Vicryl suture in Jenni transfixion stitches. Next the uterine ovarian ligament is clamped with a Jenni clamp, cut with Terrell scissors, and then sutured with 0 Vicryl suture in Jenni transfixion stitch. The same procedure is carried out on the right side. The uterine arteries are then clamped with Jenni clamp on either side. The vesicouterine peritoneum was sharply dissected away from the bladder with Metzenbaum scissors and pushed inferiorly. The uterine arteries are then cut with Terrell scissors, and sutured with 0 Vicryl suture in Jenni transfixion stitches. Next the cardinal ligaments were clamped on either side with Jenni clamp, cut with Terrell scissors, and sutured with 0 Vicryl suture in Jenni transfixion stitches. The uterosacral ligaments are clamped on either side with Jenni clamps, cut with Terrell scissors, and sutured with 0 Vicryl suture in Jenni transfixion stitches on either side. The edges of the vaginal cuff were clamped on either side with a Jenni clamp, cut with Terrell scissors, and sutured with 0 Vicryl suture in Hean ey transfixion stitches and held on either side. The vaginal mucosa was then cut just below the level of the cervix and the specimen is removed from the field. The edges of the vaginal cuff were held with Lazaro clamps. Next the previously held corners of each side of the vaginal cuff were then whipstitched along the connective tissue on either side and brought through the corner of the cuff and tied. Next the vaginal cuff was sutured with 0 Vicryl suture in a running locked fashion. Hemostasis was noted. Copious irrigation is carried out with warm saline. Excellent hemostasis is noted. Both ovaries did appear to have small hemorrhagic cysts. No other pathology is noted. All sponges are removed from the abdomen. The peritoneum and muscle are then closed with 0 Vicryl suture in a running fashion. The fascia layer is then closed with 0 PDS suture in a running fashion with the knots buried on either side and in the midline. Next the subcutaneous tissues closed with 2-0 Vicryl suture in a running fashion. The skin is closed with kumar. All sponge and needle counts are correct and the patient is taken to recovery room in stable condition.
[2021-04-20] MEDS: HYDROmorphone 0.5 MG/0.5 ML SYRINGE IVP PRN ×2 (09:41→09:46)
[2021-04-20] MEDS ORDERED: NALOXONE 0.4 MG/ML 1 ML VIAL IV PRN (09:52)
[2021-04-20] MEDS ORDERED: HYDROmorphone 0.5 MG/0.5 ML SYRINGE IVP PRN (09:52)
[2021-04-20] MEDS ORDERED: NALBUPHINE 10 MG/ML (1 ML AMP) IV PRN (09:52)
[2021-04-20] MEDS ORDERED: METOCLOPRAMIDE 5 MG/ML 2 ML VIAL IVP PRN (10:13)
[2021-04-20] MEDS ORDERED: ZOLPIDEM 5 MG TAB PO PRN (10:13)
[2021-04-20] MEDS ORDERED: ONDANSETRON 4 MG/2 ML VIAL IVP PRN (10:13)
[2021-04-20] MEDS ORDERED: ACETAMINOPHEN IV (For NPO) 1,000 MG in EMPTY BAG 1 BAG IVPB ONE (10:13)
[2021-04-20] MEDS ORDERED: SIMETHICONE 80 MG CHEWABLE PO PRN (10:13)
[2021-04-20] MEDS ORDERED: ALPRAZolam 0.5 MG TAB PO PRN (10:13)
[2021-04-20] MEDS: SENNOSIDES-DOCUSATE SODIUM 1 EACH TAB PO SCH ×2 (10:52→20:15)
[2021-04-20] MEDS: LEVOTHYROXINE 125 MCG TAB PO SCH (10:52)
[2021-04-20] MEDS: ATORVASTATIN 10 MG TAB PO SCH (11:17)
[2021-04-20] MEDS: hydroCHLOROthiazide 25 MG TAB PO SCH (11:18)
[2021-04-20] MEDS ORDERED: HYDROmorphone 1 MG/ML 1 ML SYRINGE IVP PRN (12:59)
[2021-04-20] MEDS ORDERED: ACETAMINOPHEN TAB 325 MG TAB PO PRN (17:14)
[2021-04-20] MEDS: lisinopriL 5 MG TAB PO SCH (18:31)
[2021-04-20] MEDS: KETOROLAC 30 MG/ML 1 ML VIAL IVP PRN (20:15)
[2021-04-20] MEDS: diphenhydrAMINE 50 MG/ML 1 ML VIAL IVP PRN (20:19)
[2021-04-20] MEDS ORDERED: CALCIUM CARBONATE 500 MG CHEWABLE PO PRN (23:36)
[2021-04-20] MEDS: HYDROcodone/APAP 5-325MG 1 EACH TAB PO PRN (23:44)
[2021-04-21] MEDS: LEVOTHYROXINE 125 MCG TAB PO SCH (06:11)
[2021-04-21] MEDS: HYDROcodone/APAP 5-325MG 1 EACH TAB PO PRN ×2 (06:12→19:59)
[2021-04-21] MEDS: diphenhydrAMINE 50 MG/ML 1 ML VIAL IVP PRN (06:13)
[2021-04-21] MEDS: HYDROcodone/APAP 7.5-325MG 1 EACH TAB PO PRN ×2 (06:24→14:10)
[2021-04-21] MEDS ORDERED: ACETAMINOPHEN TAB 325 MG TAB PO PRN (07:30)
[2021-04-21 07:35] LABS: Basophils % (A) 0 %; Eosinophils % (A) 0 %; HGB 13.5 gm/dL (11.4-16.0); Lymphocytes # (A) 1.7 k/uL (1.0-4.8); Lymphocytes % (A) 15 %; MCHC 32.1 g/dL (31.0-37.0); MCV 96.8 fL (80.0-100.0); Mean Platelet Volume 8.1; Monocytes # (A) 0.7 k/uL (0-1.0); Monocytes % (A) 6 %; Neutrophils # (A) 8.6 k/uL (1.3-7.7); Neutrophils % (A) 77 %; Platelet Count 241 k/uL (150-450); RBC 4.34 m/uL (3.80-5.40); RDW 12.8 % (11.5-15.5); WBC 11.2 k/uL (3.8-10.6)
--- NOTE | 2021-04-21 08:31 | P.PN ---
Subjective Progress Note Date: 04/21/21 Principal diagnosis: Status post PRETTY with bilateral salpingectomy postoperative day #1 Patient is complaining of some soreness this morning. She has been using Placida and Toradol. She hasn't passed flatus yet. She has been ambulating and is urinating without difficulty. She understands with her kidney disease that she shouldn't take NSAIDs for long periods of time, but she states she feels she needs it at this point. Objective - Vital Signs Vital signs: Vital Signs Temp 98.1 F 04/20/21 23:48 Pulse 89 04/20/21 23:48 Resp 16 04/21/21 06:30 BP 111/68 04/20/21 23:48 Pulse Ox 98 04/21/21 06:30 Intake & Output 04/20/21 04/21/21 04/21/21 18:59 06:59 18:59 Intake Total 1550 Output Total 350 3050 Balance 1200 -3050 Intake: IV 1550 Output: Urine 275 3050 Uretheral (Espinosa) 1200 Estimated Blood Loss 75 - Constitutional General appearance: Present: no acute distress - Gastrointestinal Gastrointestinal Comment(s): Incision is clean dry and intact with kumar in place. There is some dried blood on the left side of the incision. Mild ecchymosis is noted. General gastrointestinal: Present: decreased bowel sounds. Absent: distended - Musculoskeletal Musculoskeletal Comment(s): Negative Homans bilaterally - Labs CBC & Chem 7: 04/21/21 07:18 Labs: Abnormal Lab Results - Last 24 Hours (Table) 04/21/21 Range/Units 07:18 WBC 11.2 H (3.8-10.6) k/uL Neutrophils # 8.6 H (1.3-7.7) k/uL Assessment and Plan Assessment: Status post total abdominal hysterectomy with bilateral salpingectomy postoperative day #1 (1) Pelvic pain Current Visit: No Status: Acute Code(s): R10.2 - PELVIC AND PERINEAL PAIN SNOMED Code(s): 65893350 (2) ASCUS favor benign Current Visit: No Status: Acute Code(s): HAL2620 - SNOMED Code(s): 238711772 Plan: We will alternate ibuprofen with Placida. Patient is encouraged to ambulate. Will advance diet as tolerated after flatus. Patient is advised that after she is ready to go home, she will need to follow up with me in the office in approximately one week for a postoperative check. She has been counseled regarding opioid use and a consent form has been signed. Dr. Smyth will be covering the rest today and this weekend. She is advised kumar will be removed and Steri-Strips placed prior to discharge.
[2021-04-21] MEDS: ATORVASTATIN 10 MG TAB PO SCH (08:34)
[2021-04-21] MEDS: hydroCHLOROthiazide 25 MG TAB PO SCH (08:34)
[2021-04-21] MEDS: KETOROLAC 30 MG/ML 1 ML VIAL IVP PRN ×2 (08:35→16:09)
[2021-04-21] MEDS: SENNOSIDES-DOCUSATE SODIUM 1 EACH TAB PO SCH ×2 (09:05→20:03)
--- NOTE | 2021-04-21 11:00 | P.PN ---
Progress Note - Text 04/21/21 644am 45-year-old female status post total abdominal hysterectomy. Patient had a spinal Duramorph for postop pain control, patient seen and evaluated this morning, patient has a VAS of 5 complains of nausea vomiting. She does have complains of pruritus which should subside by the end of the day
[2021-04-21] MEDS: lisinopriL 5 MG TAB PO SCH (18:34)
[2021-04-21] MEDS: LACTATED RINGERS 1,000 ML IV SCH (19:58)
[2021-04-22] MEDS: HYDROcodone/APAP 5-325MG 1 EACH TAB PO PRN ×2 (01:56→08:03)
[2021-04-22] MEDS: LEVOTHYROXINE 125 MCG TAB PO SCH (06:16)
[2021-04-22] MEDS: IBUPROFEN 600 MG TAB PO PRN ×2 (06:19→12:14)
[2021-04-22] MEDS: SENNOSIDES-DOCUSATE SODIUM 1 EACH TAB PO SCH (08:03)
[2021-04-22] MEDS: hydroCHLOROthiazide 25 MG TAB PO SCH (08:03)
[2021-04-22] MEDS: ATORVASTATIN 10 MG TAB PO SCH (08:03)
[2021-04-22 09:37] VITALS: BP 120/83; PULSE 69; RESP 18; TEMP 97.6
--- NOTE | 2021-04-22 10:59 | P.DS ---
Providers Date of admission: 04/20/21 06:01 Expected date of discharge: 04/22/21 Attending physician: Mikaela Doherty Primary care physician: [facility] Course: Sue is seen and evaluated this morning. She is able to ambulate, she is voiding without difficulty, and she is passing flatus. She does relate that she has significant pain in around her incision as well as down into her legs. Her vital signs however are stable and she is both normotensive as well as non- tachycardic. She is seen laying in bed with her partner in bed with her. At one point the bed tipped down and the raising up and she voiced no complaints of pain during the process even with the Carissa bumping of the bed. We discussed stay in the hospital another day. I offered to keep her and continue trying to have better pain control for her if she wished but she declines and is requesting discharge home today. Prescriptions had already been sent to the pharmacy including [place] and more Motrin. She is aware to be very judicious with the Motrin with her kidney disease. She apparently also had her incision open up when she had one of her C-sections and after discussing options with her kumar we have opted to leave the kumar in place and will have her call on Saturday to come in for removal on Saturday. We did offer to have them taken out with Steri-Strips and Mastisol placed but she is very concerned about her incision opening up again and therefore we will leave them in place for now. Again vital signs are stable and afebrile. Her heart is regular and her lungs are clear. Extremities are without pain with minimal edema. Her abdomen is soft and there are excellent bowel sounds and her incision again is clean dry and intact. Assessment postop day 2. Plan discharged home follow up on Saturday for staple removal. Patient Condition at Discharge: Good Plan - Discharge Summary Discharge Rx Participant: No New Discharge Prescriptions: New HYDROcodone/APAP 7.5-325MG [[place] 7.5-325] 1 each PO Q6HR PRN #28 tab PRN Reason: Severe Pain Ibuprofen [Motrin] 600 mg PO Q6HR PRN #60 tab PRN Reason: Moderate Pain Continue hydroCHLOROthiazide [Hydrodiuril] 25 mg PO DAILY ALPRAZolam [Xanax] 0.5 mg PO DAILY PRN PRN Reason: Anxiety Multivitamins, Thera [Multivitamin (formulary)] 1 tab PO DAILY Cholecalciferol (Vitamin D3) [Vitamin D3] 4,000 unit PO DAILY Lovastatin [Mevacor] 10 mg PO DAILY lisinopriL [Prinivil] 5 mg PO 1900 Levothyroxine Sodium 125 mcg PO QAM Evening [place] Oil 1,000 mg PO DAILY Discharge Medication List ALPRAZolam [Xanax] 0.5 mg PO DAILY PRN 07/24/18 [History] Cholecalciferol (Vitamin D3) [Vitamin D3] 4,000 unit PO DAILY 07/24/18 [History] Lovastatin [Mevacor] 10 mg PO DAILY 07/24/18 [History] Multivitamins, Thera [Multivitamin (formulary)] 1 tab PO DAILY 07/24/18 [History] hydroCHLOROthiazide [Hydrodiuril] 25 mg PO DAILY 07/24/18 [History] lisinopriL [Prinivil] 5 mg PO 1900 07/24/18 [History] Levothyroxine Sodium 125 mcg PO QAM 06/03/20 [History] Evening [place] Oil 1,000 mg PO DAILY 04/14/21 [History] HYDROcodone/APAP 7.5-325MG [[place] 7.5-325] 1 each PO Q6HR PRN #28 tab 04/21/21 [Rx] Ibuprofen [Motrin] 600 mg PO Q6HR PRN #60 tab 04/21/21 [Rx] Follow up Appointment(s)/Referral(s): Mikaela Doherty DO [Doctor of Osteopathic Medicine] - 1-2 Days Activity/Diet/Wound Care/Special Instructions: Activity as tolerated. Diet as tolerated. No heavy lifting. No intercourse. May shower, but no tub baths for 1 week. Discharge Disposition: HOME SELF-CARE
== END 2021-04-22 12:47 | disposition home or self-care (01) | DRG 747 ==
LOC: 2ORMAIN 04-20 06:01 → 4FBP 04-20 09:15
PROVIDERS: ADMIT Obstetrics & Gynecology; ATTEND Obstetrics & Gynecology
PROC: 0UTC0ZZ Resection of Cervix, Open Approach (ICD-10-PCS; 2021-04-20)
PROC: 0UT70ZZ Resection of Bilateral Fallopian Tubes, Open Approach (ICD-10-PCS; 2021-04-20)
PROC: 0DNW0ZZ Release Peritoneum, Open Approach (ICD-10-PCS; 2021-04-20)
PROC: 0DNU0ZZ Release Omentum, Open Approach (ICD-10-PCS; 2021-04-20)
PROC: 0UT90ZZ Resection of Uterus, Open Approach (ICD-10-PCS; principal; 2021-04-20 07:30)
DX: N99.85 Post endometrial ablation syndrome (principal); E78.5 Hyperlipidemia, unspecified; N83.11 Corpus luteum cyst of right ovary; N83.12 Corpus luteum cyst of left ovary; Z20.822 Contact with and (suspected) exposure to COVID-19; F41.9 Anxiety disorder, unspecified; R11.2 Nausea with vomiting, unspecified; I10 Essential (primary) hypertension; K66.0 Peritoneal adhesions (postprocedural) (postinfection); L29.9 Pruritus, unspecified; N28.9 Disorder of kidney and ureter, unspecified; Z79.899 Other long term (current) drug therapy; Z83.3 Family history of diabetes mellitus; Z87.410 Personal history of cervical dysplasia; Z87.891 Personal history of nicotine dependence; Z98.51 Tubal ligation status; Z88.6 Allergy status to analgesic agent
CPT/HCPCS: 81025; 85025; 86850; 86870; 86880; 86900; 86901; 86902; 87635; 88307